=== PATIENT | male | born 1990 | race Hispanic/Latino ===

== ENCOUNTER 2018-03-02 22:27 | Emergency (ER) | payer OTHER ==
[2018-03-02] MEDS: BUPIVACAINE/EPIN 0.5% 30 ML VIAL XX (23:59)
== END 2018-03-03 00:34 | disposition home or self-care (01) ==
LOC: M ED 22:27
DX: S23.41XA Sprain of ribs, initial encounter (principal); X58.XXXA Exposure to other specified factors, initial encounter; Y92.9 Unspecified place or not applicable; Y93.9 Activity, unspecified; Y99.9 Unspecified external cause status
CPT/HCPCS: 71250